=== PATIENT | female | born 1960 | race African-American/Black ===

== ENCOUNTER 2020-10-01 11:32 | Emergency (ER) | payer MEDICAID ==
[~2020-10-01] VITALS: Ht 172.7 cm; Wt 81.6 kg
--- NOTE | 2020-10-01 11:45 | NUR ---
CALLED TO TRIAGE,NO ANSWER
--- NOTE | 2020-10-01 12:00 | NUR ---
CALLED TO TRIAGE, NO ANSWER
--- NOTE | 2020-10-01 12:42 | NUR ---
THE PATIENT BIBS FOR C/O GENERALIZED BODY RASH X 3 DAYS, WANTS HELP WITH PLACEMENT. DENIES ITCHING. DENIES PAIN. NO APPARENT S/S SKIN INFECTION NOTED. RESPIRATION REGULAR AND UNLABORED. WILL CONTINUE TO MONITOR THE PATIENT.
[2020-10-01 13:00] LABS: BILIRUBIN,URINE Negative (NEGATIVE); COLOR,URINE YELLOW (YELLOW); LEUKOCYTE ESTERASE ,URINE Negative (NEGATIVE); NITRITE, URINE Negative (NEGATIVE); PROTEIN,URINE Negative (NEGATIVE); UGLUCOSE Negative (NEGATIVE); UROBILINOGEN,URINE 0.2 EU/dL (0.2)
[2020-10-01 13:03] LABS: BACTERIA,URINE Few /HPF (None Seen); RBC,URINE 0-2 /HPF (0-2); SQUAMOUS EPITHELIAL CELL,UR Few /HPF (None Seen); WBC,URINE 0-2 /HPF (0-3)
[2020-10-01] MEDS ORDERED: MUPI22OI2 TP (14:00)
[2020-10-01] MEDS ORDERED: DIPH25TA25 PO (14:00)
--- NOTE | 2020-10-01 14:13 | NUR ---
AWAITING FUEL OPERATOR.
--- NOTE | 2020-10-01 14:18 | NUR ---
"Clamshell Operator consult: health services information specialist consult requested for homelessness. Patient is a 60-year-old, female. SW met with patient at her bedside in the emergency department. Patient was alert and oriented x4. Patient presented ungroomed. Patient stated that she is currently homeless. Patient stated that she currently receives food stamps and SSI. Patient reported daily cigarette use. Patient stated that she has a history of mental illness which includes, Bipolar Disorder and Schizophrenia. SW asked patient if she has access to psychiatric medication and patient stated that she does. Patient denied hallucinations or delusions. Patient denied suicidal or homicidal ideation. SW offered homeless and substance use resources to the patient and patient accepted the resources. Patient signed the homeless waiver and SW filed waiver in the patients chart. SW discussed discharge plans with the patient and patient stated that she will return to her prior living arrangement on the [address] and can use public transportation. PLAN: Patient plans to return to her prior living arrangement on the street. No further SS intervention, however, SW will remain available as needed. Year-round shelters: [facility] [address] [place], [place] [id number] ; [facility] [place] [address] [place] [address]; [facility] [id number] [facility] [address] SPA 4 | [facility] Recreation [place] Provider: First to Serve Address: [address], [address] # of Beds: 48 Population Served: [facility] Provider: First to Serve Address: [address] [facility], [address] # of Beds: 73 Population Served: [facility] 6 | [facility] Provider: Home [facility] Last Address: [address] [facility], [address] # of Beds: 63 Population Served: [facility] 3 | [facility] Provider: José Miguel of [place] Address: [address] [facility], [address] # of Beds: 75 Population Served: [facility] 8 | [facility] Provider: José Miguel of [place] Address: [address] [facility], [address] # of Beds: 80 Population Served: [facility] SPA 1 | [facility] Provider: Enoch BEST Address: [address] [place] [address], [address] # of Beds: 85 Population Served: [place] SPA 2 | [facility] Provider: Cherie of [facility] Address: Confidential (please call for location) # of Beds: 52 Population Served: [facility] SPA 4 | [facility] Provider: [facility] Address: [address] [facility], [address] # of Beds: 49 Population Served: [facility] Provider: First To Serve Address: [address] [place] [address], [address] # of Beds: 27 Population Served: [facility] Hygiene: [facility]: [address] [facility] ; [facility] [address] [facility] ; [facility] [address] [facility] . Food Resources: [place] [facility]- [address] [facility]; Meet Each Need with [facility] ([facility]) [address] [facility]; [facility] [address] [facility]; [facility] [address] [facility]. Mental Health resources provided: [facility] [address] [place] [address] ; [facility] [address] [facility] [address], [place] [address] ; [facility] Mental [facility] [address] [place] [address] ; [facility] [place], [place] [id number] Healthcare Clinics: [facility] [address] [facility], [address] [place]. [place] ; [facility] [address] [facility] [address] [place] [address]; [facility] [address] [facility] [place] [phone] Counseling--Outpatient [facility] [address] [facility], [address] [place], [place] [address] (Specializes in in-depth psychotherapy for emotional distress: anxiety, depression, interpersonal conflicts, life transitions, childhood abuse) PSYCHIATRIC OUTPATIENT SERVICES [facility] Partial Hospitalization and Intensive Outpatient Program (Managed Care and [place] Only) [address] [place] ve. [facility] [address] [facility] Partial Hospitalization and Outpatient Program [address] [place] [facility]. [address] [place], [place] [id number] [facility] Partial Hospitalization and Outpatient Program [address] [facility]. [place], [place] [phone] [facility] [address] [facility]. [address] [place], [place] [address] [facility] Partial Hospitalization and Outpatient Program [address] [place], [place] [phone] Substance use resources provided included: [facility] Substance Abuse Self-Helpline (SAS) ; [facility] [address] [place] [address] ; [facility] [address] [facility] [address] ; [facility] [address] [facility] [address] ; [facility] [address] [facility] [id number] ; [facility] [address] [place] [address] ; [facility] [place]; [facility] [place]; [facility]; Alcoholics Anonymous -[facility]"
[2020-10-01 14:36] VITALS: BP 118/85
--- NOTE | 2020-10-01 14:38 | NUR ---
Patient given written and verbal discharge instructions. Patient verbalizes understanding of instructions. Patient is ambulatory with steady gait. Refuses offer of care home placement. Patient given list of available shelters in surrounding area. Pt signed homeless waiver.
== END 2020-10-01 14:37 | disposition home or self-care (01) ==
LOC: ER 11:46
DX: L73.9 Follicular disorder, unspecified (principal); R46.0 Very low level of personal hygiene; I10 Essential (primary) hypertension; Z59.0 Homelessness; Z60.2 Problems related to living alone
CPT/HCPCS: 81001